=== PATIENT | female | born 1950 | race Caucasian/White ===

== ENCOUNTER 2016-07-15 10:52 | Emergency (ER) | payer BC ==
--- NOTE | ~2016-07-15 | CR20 ---
[facility]. [facility] A Service of [facility] & [facility] RADIOLOGY TEXT RESULTS PATIENT: MILKA ESTEVEZ LOCATION: SED : 52 UNIT #: [id number] AGE: [address]: Ciro Hickey MD SEX: F ORDER DR: [id number] [address] [address] [id number] E MR#: [id number] Acc #: [id number] NAME: MILKA ESTEVEZ : 1950 SEX: F STUDY DATE/TIME: 07/15/2016 11:11 UNIT: SED ROOM: STUDY DESCRIPTION: CR Ankle Min 3 Views Lt Attending Physician: Ciro Hickey M.D. Ordering Physician: Ciro Hickey M.D. Primary Care Physician: Nicki Anaya A.P.R.N. MEDICAL IMAGING REPORT This report is preliminary unless electronic signature is present. EXAM 3 views left ankle performed on 07/15/2016 HISTORY 66-year-old female with fall yesterday and ankle pain. FINDINGS There is soft tissue swelling present over the lateral malleolus. Some calcaneal spurring is noted but the ankle mortise appears to remain intact. There appears to be a distal fibular shaft fracture without any significant displacement. IMPRESSION Soft tissue swelling over the lateral malleolus with a distal fibular shaft fracture and step off seen but no displacement of significance noted. Clinical correlation recommended. No disruption of the ankle mortise appreciated. Dictated by... Tj Parra M.D. THIS IS AN ELECTRONICALLY VERIFIED REPORT Tj Parra M.D. at 07/15/2016 7:02 PM DAYSI/jimenez TD: 07/15/2016 12:54 JOB #: [id number] MEDICAL IMAGING REPORT
[~2016-07-15 10:52] MED LIST: ACETAMINOPHEN PO; APRESOLINE; ASPIRIN PO; BETAPACE PO; CARDIZEM SR PO; CEPHALEXIN500 M1 PO; COUMADIN PO; DIOVAN PO; GLUCOPHAGE XR500 MG PO; HCTZ PO; HYDROCHLOROTHIAZIDE; JANUVIA PO; K-DUR20 ME2 PO; LANOXIN PO; LEVEMIR SUBQ; LIPITOR PO; LOPRESSOR PO; MAGNESIUM400 MG PO; METOPROLOL SUC100 MG PO; PACERONE PO; PRADAXA150 MG PO; PRILOSEC PO; PRILOSEC20 MG PO; PRINIVIL40 MG PO; TYLENOL PM PO
[2016-07-15] MEDS ORDERED: HYDRALAZINE PO (11:17)
[2016-07-15] MEDS ORDERED: PRADAXA PO (11:17)
[2016-07-15] MEDS ORDERED: DILTIAZEM PO (11:18)
[2016-07-15] MEDS ORDERED: METOPROLOL PO (11:18)
[2016-07-15] MEDS ORDERED: LIPITOR PO (11:18)
[2016-07-15] MEDS ORDERED: LISINOPRIL PO (11:18)
[2016-07-15] MEDS ORDERED: LEVIMIR SUBQ (11:19)
[2016-07-15] MEDS ORDERED: MONTELUKAST PO (11:19)
[2016-07-15] MEDS ORDERED: DULOXETINE PO (11:19)
[2016-07-15] MEDS ORDERED: ZOLPIDEM PO (11:20)
[2016-07-15] MEDS ORDERED: APRIDA SUBQ (11:20)
== END 2016-07-15 13:17 | disposition home or self-care (01) ==
LOC: SED 10:52
DX: S82.832A Other fracture of upper and lower end of left fibula, initial encounter for closed fracture (principal); R00.0 Tachycardia, unspecified; E11.9 Type 2 diabetes mellitus without complications; I10 Essential (primary) hypertension; W18.40XA Slipping, tripping and stumbling without falling, unspecified, initial encounter; Y92.009 Unspecified place in unspecified non-institutional (private) residence as the place of occurrence of the external cause
CPT/HCPCS: 73610; 82947; 99283

== ENCOUNTER → 2016-10-31 | Outpatient (CLI) | payer BC ==
[~2016-10-31] MED LIST changes: +APRIDA SUBQ; +DILTIAZEM PO; +DULOXETINE PO; +HYDRALAZINE PO; +LEVIMIR SUBQ; +LISINOPRIL PO; +METOPROLOL PO; +MONTELUKAST PO; +PRADAXA PO; +ZOLPIDEM PO
--- NOTE | ~2016-10-31 | CR63 ---
[facility] A Service [facility] RADIOLOGY TEXT RESULTS PATIENT: MILKA ESTEVEZ LOCATION: [facility] : 52 UNIT #: [id number] AGE: [address]: Nicki Anaya SEX: F ORDER DR: [id number] [place] [id number] O MR#: [id number] Acc #: [id number] NAME: MILKA ESTEVEZ : 1950 SEX: F STUDY DATE/TIME: 10/31/2016 14:42 UNIT: [facility] ROOM: STUDY DESCRIPTION: CR Chest 2 View Attending Physician: Nicki Anaya A.P.R.N. Referring Physician: Nicki Anaya A.P.R.N. Ordering Physician: Nicki Anaya A.P.R.N. Primary Care Physician: Nicki Anaya A.P.R.N. MEDICAL IMAGING REPORT This report is preliminary unless electronic signature is present. EXAM Two-view chest INDICATIONS Cough and right-sided chest pain beginning 3 days ago. PROCEDURE Frontal and lateral views of the chest COMPARISON 09/30/2014 FINDINGS Stable cardiomegaly. Pulmonary vessels are unchanged. There is new patchy alveolar opacity in the right lung. No pleural fluid or pneumothorax. IMPRESSION New patchy alveolar opacities in the right lung could represent asymmetric edema or infiltrate. Dictated by... Scott Whatley M.D. THIS IS AN ELECTRONICALLY VERIFIED REPORT Scott Whatley M.D. at 11/01/2016 9:28 AM VERNA/sunday TD: 10/31/2016 17:21 JOB #: [id number] [facility] A Service [facility] RADIOLOGY TEXT RESULTS PATIENT: MILKA ESTEVEZ LOCATION: [facility] : 52 UNIT #: [id number] AGE: [address]: Nicki Anaya SEX: F ORDER DR: MEDICAL IMAGING REPORT Page 1 of 1
== END | disposition home or self-care (01) ==
LOC: SRAD 14:34
DX: R05 Cough (principal); R07.9 Chest pain, unspecified; R91.8 Other nonspecific abnormal finding of lung field
CPT/HCPCS: 71020

== ENCOUNTER → 2017-01-17 | Outpatient (CLI) | payer BC ==
--- NOTE | ~2017-01-17 | CR63 ---
[facility] A Service of [facility] & [facility] RADIOLOGY TEXT RESULTS PATIENT: MILKA ESTEVEZ LOCATION: [facility] : 52 UNIT #: [id number] AGE: [address]: Nicki Anaya IMAGING SERVICES DIRECTOR SEX: F ORDER DR: [id number] [address] [address] [id number] O MR#: [id number] Acc #: [id number] NAME: MILKA ESTEVEZ : 1950 SEX: F STUDY DATE/TIME: 01/17/2017 13:39 UNIT: [facility] ROOM: STUDY DESCRIPTION: CR Chest 2 View Attending Physician: Nicki Anaya A.P.R.N. Ordering Physician: Nicki Anaya A.P.R.N. Primary Care Physician: Nicki Anaya A.P.R.N. MEDICAL IMAGING REPORT This report is preliminary unless electronic signature is present. EXAM Chest, 2 views; dated 01/17/2017. COMPARISON Chest 2 views, dated 10/31/2016. HISTORY Questioned right lung infiltrate. Follow up. Symptoms began on 10/31/2016. FINDINGS Two views of the chest were obtained. The lungs appear to be relatively better aerated when compared to the prior study without any superimposed new patchy dense consolidation, pleural effusion or pneumothorax. There is a hiatal hernia, better seen in the frontal when compared to the lateral view with air-fluid level. Heart is of normal size. Dictated by... Gasper Doherty M.D. THIS IS AN ELECTRONICALLY VERIFIED REPORT Gasper Doherty M.D. at 01/22/2017 7:04 PM CPR/jt TD: 01/17/2017 17:38 JOB #: [id number] MEDICAL IMAGING REPORT Page 1 of 1
== END | disposition home or self-care (01) ==
LOC: SRAD 13:27
DX: R91.8 Other nonspecific abnormal finding of lung field (principal)
CPT/HCPCS: 71020